=== PATIENT | female | born 1960 | race Caucasian/White ===

== ENCOUNTER 2021-05-31 07:11 | Outpatient (CLI) | payer BC, SELFPAY ==
--- NOTE | 2021-05-31 07:27 | US_ITS ---
WS: [id number] TRANSABDOMINAL AND TRANSVAGINAL PELVIC ULTRASOUND HISTORY: ? Fibroid, abnormal PELVIC EXAM COMPARISON: None available. Uterus: 6.3 x 2.0 x 4.0 cm. Uterus is small caliber and anteverted. There is a poorly defined soft ti ssue mass which is extending posterior and bulging from the posterior uterus. Mass contains calcifica tions and does abut the posterior surface of the endometrium. There is mild increased vascularity wit hin the mass. This mass measures 3.8 x 2.7 x 3.5 cm. Endometrium: Poorly visualized endometrium. Endometrium is distorted by the mass. The endometrium is mildly distended measuring approximately 7 mm. There are increased low level echoes within the endome trial canal. No increased vascularity. Right ovary: RIGHT ovary is not identified. No adnexal mass. Left ovary: 2.0 x 1.2 x 1.5 cm; no abnormality. No free fluid. US/US pelvic complete* [id number] IMPRESSION: 1. Heterogeneous mass with calcifications centered in the posterior myometrium causing bulging of the posterior contour. This mass measures 2.8 x 2.7 x 3.5 c m and is most likely a degenerating fibroid. 2. RIGHT ovary not visualized. 3. Mildly enlarged endometrium with low level echoes in the endometrial canal. No increased vascularity but neoplasm is not excluded. Recommend hysteroscopy for further evaluation.
== END 2021-05-31 07:12 | disposition home or self-care (01) ==
PROVIDERS: PCP Family Medicine; Visit Provider Nurse Practitioner Family
DX: Z01.411 Encounter for gynecological examination (general) (routine) with abnormal findings (principal); R19.09 Other intra-abdominal and pelvic swelling, mass and lump; N85.00 Endometrial hyperplasia, unspecified
CPT/HCPCS: 76856

== ENCOUNTER → 2021-06-05 09:00 | Outpatient (BNVA) | payer BC, SELFPAY | PROVIDERS: PCP Family Medicine; Referring Provider Nurse Practitioner Family; Visit Provider Obstetrics & Gynecology | DX: N89.8 Other specified noninflammatory disorders of vagina (principal) | CPT/HCPCS: 87070; 87077; 87184; 87205 ==

== ENCOUNTER 2021-06-13 09:16 | Day surgery (SDC) | payer BC, SELFPAY ==
[2021-06-12 12:41] VITALS: BMI 25.7
[2021-06-13] VITALS (9 sets, daily range): BP systolic 114–145; BP diastolic 74–100; PULSE 85–94; RESP 12–19; TEMP 36.3–37.1; O2SAT 99–100
[2021-06-13] MEDS: sodium chloride 0.9% 1,000 ML 30 ML IV (09:46)
[2021-06-13] MEDS: ketorolac 30 mg/mL INJ IVP (09:47)
--- NOTE | 2021-06-13 10:21 | ANES.PREANE2 ---
Pre-Anesthetic Assessment Height/Weight: Height 1.6 m Weight 65.771 kg Temp Pulse Resp BP Pulse Ox 98.8 F 88 18 145/92 99 06/13/21 09:32 06/13/21 09:32 06/13/21 09:32 06/13/21 09:32 06/13/21 09:32 Preop Diagnosis: uterine leiomyoma, thickened endometrium, pelvic pain Operation Date: 06/13/21 10:40 Proposed Procedures p Hysteroscopy w/ Myosure 20060/46999/D25.9/R10.2/D25.9/45371(Not Applicable) - Rahel Bryan MD s Dilation And Curettage (D&C)(Not Applicable) - Rahel Bryan MD Familial anesthetic complications: None Was Beta Gina taken within 24 hours: N/A Was Clonidine taken within 24 hours: N/A Last intake: Intake Last Liquid Date 06/12/21 Last Liquid Time 23:40 Last Solid Date 06/12/21 Last Solid Time 23:40 Social No alcohol and No tobacco Exam alert, oriented x 3, clear to auscultation bilaterally and regular rate & rhythm Airway Submandibular: within normal limits Cervical ROM: within normal limits Mallampati: Class II Dentition: full Metabolic Hyperlipidemia Anesthetic Plan ASA status: 2 Anesthesia: General Medications/Allergies Home Medications Medication Instructions Recorded Confirmed Last Taken Type atorvastatin 10 mg tablet (Lipitor) 10 mg PO DAILY 06/05/21 06/13/21 06/12/21 History doxycycline hyclate 100 mg tablet 100 mg PO BID #28 tab 06/05/21 06/13/21 06/12/21 Rx ciprofloxacin HCl 500 mg tablet 500 mg PO BID #20 tab 06/08/21 06/13/21 06/12/21 Rx (Cipro) Allergies Allergy/AdvReac Type Severity Reaction Status Date / Time Penicillins Allergy Severe swelling Verified 06/13/21 09:30 Sulfa (Sulfonamide Allergy Unknown Unknown Verified 06/13/21 09:30 Antibiotics) Current Medications Generic Name Dose Route Start Last Admin Trade Name Freq PRN Reason Stop Dose Admin Sodium Chloride 1,000 mls @ 30 mls/hr 06/13/21 09:30 06/13/21 09:46 Sodium Chloride 0.9% IV 06/14/21 09:29 30 mls/hr .Q24H COSTA Administration PFSH Anesthesia Medical History Factor 5 Leiden mutation, heterozygous History of broken collarbone X2 surgical repair Hypercholesteremia Surgical History History of carpal tunnel repair History of cholecystectomy History of tubal ligation Family History Daughter Bleeding disorder 2 copies of factor 5 Clotting disorder Thyroid disease Sister Uterine cancer Diabetes Hypertension Father Diabetes Hypertension Stroke Family/Other Breast cancer 6 paternal aunts Cancer paternal uncle- lung cancer maternal uncle- colon cancer Brother Cancer testicular Diabetes Mother Hypertension Stroke Denies family history of Hyperlipidemia Data Anesthesia Cardiac Studies: No Data to Display
--- NOTE | 2021-06-13 10:41 | W.PM.OPSUD ---
Surgery/Procedure H&P Update DATE OF PROCEDURE: June 13, 2021 DATE H&P PERFORMED: 06/08/21 H&P UPDATE INFORMATION: I have reviewed H&P completed within last 30 days, I have examined patient prior to procedure and No changes to prior documentation CHANGES TO PREVIOUS DOCUMENTATION: I have spoken with patient and she has had keflex in the past. PREOP DIAGNOSIS: uterine leiomyoma, thickened endometrium, pelvic pain PLANNED PROCEDURE: Operation Date: 06/13/21 10:40 Proposed Procedures p Hysteroscopy w/ Myosure 95873/19357/D25.9/R10.2/D25.9/03900(Not Applicable) - Rahel Bryan MD s Dilation And Curettage (D&C)(Not Applicable) - Rahel Bryan MD Related Problem List Diagnoses (1) Uterine leiomyoma: (2) Thickened endometrium:
[2021-06-13] MEDS: miSOPROStol 200 mcg Tablet 800 MCG VAGINAL (11:25)
--- NOTE | 2021-06-13 12:01 | PM.OP ---
Operative Report Date of procedure: June 13, 2021 Pre-op diagnosis: Preop Diagnosis uterine leiomyoma, thickened endometrium, pelvic pain Post-op diagnosis: other Post-op diagnosis: Cervical stenosis Post-op findings: stenotic cervical os Procedure done: cervical dilation and attempted hysteroscopy Specimens removed/disposition: none Surgeon: Rahel Bryan Anesthesia: General Estimated blood loss (mL): 0 IV fluids (mL): 900 Complications: none Findings: stenotic internal and external cervical os. Unable to advance into cervix Condition: stable Disposition: PACU Procedure: The patient was taken to the operating room where monitored anesthesia was administered and to be adequate. She was prepped and draped in the normal sterile fashion in the dorsal lithotomy position in [facility]. A weighted speculum was placed into the vagina and the anterior lip of the cervix grasped with a single-tooth tenaculum. The external cervical os was stenotic. 800 mcg was placed under the cervix. I used the lacrimal dilators to dilate the external os to 16 mm. The uterus was unable to be sounded due to a closed internal cervical os. I attempted dilation with the uterine sound and even hydrodilation with the hysteroscope. I could see the internal Os, but it would not open. It did appear as though there was a mass near the posterior of the internal os. Without being able to visualize it fully, I was unable to resect the mass. I tried several attempts to dilate the cervix, but it was solidly shut. I aborted the procedure. I will speak with the patient about the option of pre-treatment with cytotc prior to attempting hysteroscopy again or offer vaginal hysterectomy. All instruments were removed. The patient tolerated the procedure well. Sponge lap and needle counts were correct x3. She was taken to the recovery room in stable condition.
--- NOTE | 2021-06-13 12:10 | PM.DCS ---
Discharge Providers Date of Admission: 06/13/21 Date of Discharge: June 13, 2021 Attending Provider at Discharge: Rahel Bryan MD Primary Care Provider: Lula Lee MD Diagnoses at Discharge Discharge Diagnosis (1) Uterine leiomyoma: Status: Acute (2) Thickened endometrium: Status: Acute Reason for Visit Reason for Visit: pelvic pain, uterine fibroids, thickened endometri Hospital Course Hospital Course The patient was admitted for surgery. I was unable to get through her internal os. The procedure was aborted. We will discuss what to do next from here. She did well postoperatively and was ready for discharge. Discharge Data Vitals Last Vital Signs Temp 97.3 F L 06/13/21 12:02 Pulse 88 06/13/21 12:02 Resp 12 06/13/21 12:02 BP 135/87 06/13/21 12:02 Pulse Ox 100 06/13/21 12:02 Discharge Plan Discharge Patient Disposition: Home Condition: Stable Prescriptions: Continued atorvastatin [Lipitor] 10 mg tablet 10 mg PO DAILY 0RF doxycycline hyclate 100 mg tablet 100 mg PO BID Qty: 28 0RF ciprofloxacin HCl [Cipro] 500 mg tablet 500 mg PO BID Qty: 20 0RF Discharge Orders: Discharge Order (Routine); Ordered 06/13/21 Ordered By: Rahel Bryan Discharge Attestations Time Spent in Discharge Care*: less than 30 min Quality Metrics Clinical Quality Measures [ No reported AMI, CVA or VTE this stay] Coding Level of Care Code Acute Chg FW DC note Diagnoses Uterine leiomyoma D25.9 Thickened endometrium R93.89
--- NOTE | 2021-06-13 12:11 | SUR.PHASEI ---
1201 PT TO PACU SLEEPY WITH GOOD RESPIRATORY EFFORT, CHIN LIFT REQUIRED TO KEEP AIRWAY OPEN, VSS MONITOR SR NO ECTOPY, IV TO RT WRIST #18 WITH NS 100ML AT KVO RATE PER GRAVITY, PT ABDOMEN SOFT, ID BAND TO LT WRIST PT ID'D WITH 2 IDENTIFIERS, SCDS ON BILATERALLY.
--- NOTE | 2021-06-13 12:14 | SUR.PHASEI ---
PT AWAKE ALERT , ORIENTED X 3 ,PT VERBALLY DENIES PAIN AND NAUSEA, PT ON RA TRIAL.
--- NOTE | 2021-06-13 15:30 | ANE.PACU2 ---
Inpatient post-anesthesia follow up: Airway intact: Yes Vital signs: Temperature 97.4 F Pulse Rate 85 Respiratory Rate 16 Blood Pressure 118/74 Pulse Oximetry 100 Oxygen Delivery Me thod Room Air Oxygen Flow Rate 8 Fraction of Inspir ed Oxygen Hydration adequate: Yes Nausea and vomiting: No Pain level: 2 Mental status: Baseline
== END 2021-06-13 13:20 | disposition home or self-care (01) ==
PROVIDERS: PCP Family Medicine; Visit Provider Obstetrics & Gynecology
PROC: 0UDB8ZZ Extraction of Endometrium, Via Natural or Artificial Opening Endoscopic (ICD-10-PCS; CPT 58558; principal; 2021-06-13 10:30)
PROC: (CPT 58120; 2021-06-13 10:30)
DX: D25.9 Leiomyoma of uterus, unspecified (principal); R93.89 Abnormal findings on diagnostic imaging of other specified body structures; R10.2 Pelvic and perineal pain; Z83.3 Family history of diabetes mellitus; Z82.49 Family history of ischemic heart disease and other diseases of the circulatory system; Z80.3 Family history of malignant neoplasm of breast; Z80.49 Family history of malignant neoplasm of other genital organs
CPT/HCPCS: 58558; J0690; J1100; J1885; J2250; J2405; J2704; J3010; J7030

== ENCOUNTER 2021-07-12 15:17 | Outpatient (CLI) | payer BC, SELFPAY ==
--- NOTE | 2021-07-12 15:35 | MM_ITS ---
WS: [id number] BILATERAL 3D TOMOSYNTHESIS DIGITAL SCREENING MAMMOGRAPHY WITH CAD CLINICAL INFORMATION: SCREENING HISTORY: Screening mammogram. No current complaints. COMPARISON: June 28, 2016 TECHNIQUE: Bilateral CC and MLO views. FINDINGS: Scattered fibroglandular densities bilaterally. Punctate and lucent centered calcifications. Vascular calcification. No suspicious focal mass, asymmetry, calcifications, or architectural distortion. No evidence of malignancy. MM/[place] [id number] IMPRESSION: BI-RADS: 2-Benign FOLLOW UP: 1 Year Follow-up Recommend return to annual screening mammography.
== END 2021-07-12 15:18 | disposition home or self-care (01) ==
LOC: RAD 15:19
PROVIDERS: PCP Family Medicine; Visit Provider Nurse Practitioner Family
DX: Z12.31 Encounter for screening mammogram for malignant neoplasm of breast (principal)
CPT/HCPCS: 77063; 77067

== ENCOUNTER 2021-09-12 05:50 | Day surgery (SDC) | payer BC, SELFPAY ==
[2021-09-11 10:03] VITALS: BMI 24.7
[2021-09-12] VITALS (8 sets, daily range): BP systolic 101–143; BP diastolic 73–86; PULSE 71–87; RESP 16–18; TEMP 36.6–36.8; O2SAT 98–100
[2021-09-12] MEDS: ketorolac 30 mg/mL INJ IVP (06:18)
[2021-09-12] MEDS: sodium chloride 0.9% 1,000 ML 30 ML IV (06:23)
[2021-09-12] MEDS: doxycycline 100 MG in sodium chloride 0.9% (plus) 100 ML IV (07:00)
--- NOTE | 2021-09-12 07:09 | W.PM.OPSUD ---
Surgery/Procedure H&P Update DATE OF PROCEDURE: September 12, 2021 DATE H&P PERFORMED: 09/08/21 H&P UPDATE INFORMATION: I have reviewed H&P completed within last 30 days, I have examined patient prior to procedure and No changes to prior documentation PREOP DIAGNOSIS: thickened endometrium, pelvic pain, uterine leiomyoma, cervical stenosis PLANNED PROCEDURE: Operation Date: 09/12/21 07:00 Proposed Procedures p Hysteroscopy w/ Myosure dialation and curettage [id number]/47427/R93.89(Not Applicable) - Rahel Bryan MD s Dilation And Curettage (D&C)(Not Applicable) - Rahel Bryan MD Related Problem List Diagnoses (1) Cervical stenosis (uterine cervix): (2) Uterine leiomyoma: (3) Pelvic pain: (4) Thickened endometrium:
--- NOTE | 2021-09-12 07:49 | PM.OP ---
Operative Report Date of procedure: September 12, 2021 Pre-op diagnosis: Preop Diagnosis thickened endometrium, pelvic pain, uterine leiomyoma, cervical stenosis Post-op diagnosis: same Procedure done: hysteroscopy, dilation and curettage with myosure Specimens removed/disposition: endometrial polyp to pathology Surgeon: Rahel Bryan Anesthesia: MAC Estimated blood loss (mL): 0 IV fluids (mL): 750 Complications: none Findings: 8 week sized uterus, one large endometrial polyp arising from the right fallopian tube Condition: stable Disposition: PACU Procedure: The patient was taken to the operating room where monitored anesthesia was administered and to be adequate. She was prepped and draped in the normal sterile fashion in the dorsal lithotomy position in [facility]. A weighted speculum was placed into the vagina and the anterior lip of the cervix grasped with a single-tooth tenaculum. The uterus was sounded to 8 cm. The cervix was dilated to 16 [place]. The hysteroscope was advanced into the endometrial cavity. There was a large polyp arising from the right fallopian tube visualized. The MyoSure device was activated and the tissue was removed. Pictures were taken pre and post procedure. All instruments were removed. The patient tolerated the procedure well. Sponge lap and needle counts were correct x3. She was taken to the recovery room in stable condition.
--- NOTE | 2021-09-12 07:54 | ANES.PREANE2 ---
Pre-Anesthetic Assessment Height/Weight: Height 1.6 m Weight 63.503 kg Temp Pulse Resp BP Pulse Ox 97.8 F 71 16 101/73 100 09/12/21 07:50 09/12/21 07:50 09/12/21 07:50 09/12/21 07:50 09/12/21 07:50 Preop Diagnosis: thickened endometrium, pelvic pain, uterine leiomyoma, cervical stenosis Operation Date: 09/12/21 07:00 Proposed Procedures p Hysteroscopy w/ Myosure dialation and curettage [id number]/[id number]/31039/R93.89(Not Applicable) - Rahel Bryan MD s Dilation And Curettage (D&C)(Not Applicable) - Rahel Bryan MD Familial anesthetic complications: None Was Beta Gina taken within 24 hours: N/A Was Clonidine taken within 24 hours: N/A Last intake: Intake Last Liquid Date 09/11/21 Last Liquid Time 21:00 Last Solid Date 09/11/21 Last Solid Time 21:00 Social No alcohol and No tobacco Exam alert, oriented x 3, clear to auscultation bilaterally and regular rate & rhythm Airway Submandibular: within normal limits Cervical ROM: within normal limits Mallampati: Class II Dentition: full Metabolic Hyperlipidemia Anesthetic Plan ASA status: 2 Anesthesia: General Medications/Allergies Home Medications Medication Instructions Recorded Confirmed Last Taken Type atorvastatin 10 mg tablet (Lipitor) 10 mg PO DAILY 06/05/21 09/12/21 09/11/21 History misoprostol 200 mcg tablet 600 mcg PO Q6H #36 tab 09/08/21 09/12/21 09/12/21 Rx (Cytotec) Allergies Allergy/AdvReac Type Severity Reaction Status Date / Time Penicillins Allergy Severe swelling Verified 09/11/21 10:02 Sulfa (Sulfonamide Allergy Unknown Unknown Verified 09/11/21 10:02 Antibiotics) Current Medications Generic Name Dose Route Start Last Admin Trade Name Freq PRN Reason Stop Dose Admin Sodium Chloride 1,000 mls @ 30 mls/hr 09/12/21 06:15 09/12/21 06:23 Sodium Chloride 0.9% IV 09/13/21 06:14 30 mls/hr .Q24H COSTA Administration PFSH Anesthesia Medical History Factor 5 Leiden mutation, heterozygous History of broken collarbone X2 surgical repair Hypercholesteremia Surgical History History of carpal tunnel repair History of cholecystectomy History of tubal ligation Family History Daughter Bleeding disorder 2 copies of factor 5 Clotting disorder Thyroid disease Sister Uterine cancer Diabetes Hypertension Father Diabetes Hypertension Stroke Family/Other Breast cancer 6 paternal aunts Cancer paternal uncle- lung cancer maternal uncle- colon cancer Brother Cancer testicular Diabetes Mother Hypertension Stroke Denies family history of Hyperlipidemia Data Anesthesia Cardiac Studies: No Data to Display
--- NOTE | 2021-09-12 07:54 | PM.DCS ---
Discharge Providers Date of Admission: 09/12/21 Date of Discharge: September 12, 2021 Attending Provider at Discharge: Rahel Bryan MD Primary Care Provider: Lula Lee MD Diagnoses at Discharge Discharge Diagnosis (1) Cervical stenosis (uterine cervix): Status: Acute (2) Uterine leiomyoma: Status: Acute (3) Pelvic pain: Status: Acute (4) Thickened endometrium: Status: Acute Reason for Visit Reason for Visit: thickened endometrium R93.89/D25.9 Hospital Course Hospital Course The patient was admitted for surgery. She did well postoperatively and was ready for discharge Discharge Data Studies Completed and Pending Pending at discharge Category Date Time Status ES surgery / GI images Routine Exams 09/12/21 06:26 Taken Pathology: Surgical [PTH] Routine Pth 09/12/21 07:34 Ordered Vitals Last Vital Signs Temp 97.8 F 09/12/21 07:50 Pulse 71 09/12/21 07:50 Resp 16 09/12/21 07:50 BP 101/73 09/12/21 07:50 Pulse Ox 100 09/12/21 07:50 Discharge Plan Discharge Patient Disposition: Home Condition: Stable Prescriptions: Continued atorvastatin [Lipitor] 10 mg tablet 10 mg PO DAILY 0RF misoprostol [Cytotec] 200 mcg tablet 600 mcg PO Q6H Qty: 36 0RF Rx Instructions: start medication 12:00 noon on 09/09 and take every 6 hours. Last dose am 09/12 Discharge Orders: Discharge Order (Routine); Ordered 09/12/21 Ordered By: Rahel Bryan Discharge Attestations Time Spent in Discharge Care*: less than 30 min Quality Metrics Clinical Quality Measures [ No reported AMI, CVA or VTE this stay] Coding Level of Care Code Acute Chg FW DC note Diagnoses Cervical stenosis (uterine cervix) N88.2 Uterine leiomyoma D25.9 Pelvic pain R10.2 Thickened endometrium R93.89
--- NOTE | 2021-09-12 15:40 | ANE.PACU2 ---
Inpatient post-anesthesia follow up: Airway intact: Yes Vital signs: Temperature 98.1 F Pulse Rate 81 Respiratory Rate 18 Blood Pressure 138/82 Pulse Oximetry 100 Oxygen Delivery Me thod Room Air Oxygen Flow Rate 6 Fraction of Inspir ed Oxygen Hydration adequate: Yes Nausea and vomiting: No Pain level: 3 Mental status: Baseline
== END 2021-09-12 08:52 | disposition home or self-care (01) ==
PROVIDERS: PCP Family Medicine; Visit Provider Obstetrics & Gynecology
PROC: 0UDB8ZZ Extraction of Endometrium, Via Natural or Artificial Opening Endoscopic (ICD-10-PCS; CPT 58558; principal; 2021-09-12 07:00)
PROC: (CPT 58120; 2021-09-12 07:00)
DX: R93.89 Abnormal findings on diagnostic imaging of other specified body structures (principal); R10.2 Pelvic and perineal pain; D25.9 Leiomyoma of uterus, unspecified; N88.2 Stricture and stenosis of cervix uteri
CPT/HCPCS: 58558; 88305; J1885; J2001; J2250; J2704; J3010; J3490; J7030

== ENCOUNTER 2024-01-28 10:45 | Outpatient (CLI) | payer BC, SELFPAY ==
--- NOTE | 2024-01-28 10:46 | MM_ITS ---
WS: [id number] BILATERAL 3D TOMOSYNTHESIS DIGITAL SCREENING MAMMOGRAPHY WITH CAD CLINICAL INFORMATION: SCREENING HISTORY: Screening mammogram. No current complaints. COMPARISON: 2021 TECHNIQUE: Bilateral CC and MLO views. FINDINGS: The breasts are composed of heterogeneous fibroglandular density tissue, which can limit the detectio n of small underlying mass lesions. No suspicious mass, asymmetry, calcifications, or architectural d istortion. No evidence of malignancy. Vascular calcifications. Few incidental benign calcifications. MM/MM [facility] tomosynthesis [id number] IMPRESSION: DENSITY: The breasts are heterogeneously dense, which may obscure small masses. BI-RADS: 2 - Benign FOLLOW UP: 1 Year Follow-up Recommend return to annual screening mammography.
== END 2024-01-28 10:46 | disposition home or self-care (01) ==
LOC: RAD 10:46
PROVIDERS: PCP Family Medicine; Visit Provider Family Medicine
DX: Z12.31 Encounter for screening mammogram for malignant neoplasm of breast (principal); R92.333 Mammographic heterogeneous density, bilateral breasts; R92.1 Mammographic calcification found on diagnostic imaging of breast
CPT/HCPCS: 77063; 77067

== ENCOUNTER → 2024-11-18 07:57 | Outpatient (BNVA) | payer MEDICARE, SELFPAY | PROVIDERS: PCP Family Medicine; Visit Provider Surgery | DX: R19.7 Diarrhea, unspecified (principal) | CPT/HCPCS: 99203 ==

== ENCOUNTER 2024-12-03 06:37 | Day surgery (SDC) | payer MEDICARE, SELFPAY ==
[2024-12-03 06:58] VITALS: BP 126/91; PULSE 82; RESP 16; TEMP 36.3; O2SAT 100; BMI 23.9
--- NOTE | 2024-12-03 07:35 | ANES.PREANE2 ---
Pre-Anesthetic Assessment Height/Weight: Height 1.6 m Weight 61.235 kg Temp Pulse Resp BP Pulse Ox O2 Del Method 97.4 F L 82 16 126/91 100 Room Air 12/03/24 06:58 12/03/24 06:58 12/03/24 06:58 12/03/24 06:58 12/03/24 06:58 12/03/24 06:58 Operation Date: 12/03/24 07:55 Proposed Procedures p Colonoscopy [id number] G0105 Z12.11(Not Applicable) - Loki Nuno MD Familial anesthetic complications: none Was Beta Gina taken within 24 hours: N/A Was Clonidine taken within 24 hours: N/A Last intake: Intake Last Liquid Date 12/02/24 Last Liquid Time 20:00 Last Solid Date 12/01/24 Last Solid Time 19:00 Social No alcohol and No tobacco Exam alert and oriented x 3 Airway Submandibular: within normal limits Cervical ROM: within normal limits Mallampati: Class I Dentition: full History/ROS No significant complaints Anesthetic Plan ASA status: 1 Risk of > 500 ml blood loss (7ml/kg in children): No Medications/Allergies Home Medications ?Medication ?Instructions ?Recorded ?Confirmed ?Last Taken ?Type LOLITA 250 mg-5HTP 50 mg-mag 50 1 cap PO DAILY 11/18/24 11/30/24 12/02/24 07:00 History if-R6-rrvuhf 1,360 mcg DFE-B12 capsule ([employer]) ascorbic acid (vitamin C) 1,000 mg 1,000 mg PO DAILY 11/18/24 11/30/24 12/02/24 07:00 History capsule bergamot extract 500 mg capsule 1,500 mg PO DAILY 11/18/24 11/30/24 12/02/24 07:00 History ([place] Bergamot) magnesium 200 mg tablet 1,000 mg PO DAILY 11/18/24 11/30/24 12/02/24 07:00 History pk-1-tki-epa-fish oil-vit D3 500 1 cap PO BID 11/18/24 11/30/24 12/01/24 07:00 History mg (200mg-300mg)-1,000 mg capsule vitamin B comp and C no.3 15 mg-10 1 cap PO BID 11/18/24 11/30/24 12/02/24 07:00 History mg-50 mg-5 mg-300 mg capsule (B Complex Plus Vitamin C) Allergies Allergy/AdvReac Type Severity Reaction Status Date / Time Penicillins Allergy Severe swelling Verified 12/03/24 07:06 Sulfa (Sulfonamide Allergy Unknown Unknown Verified 12/03/24 07:06 Antibiotics) Current Medications Generic Name Dose Route Start Last Admin Trade Name Freq PRN Reason Stop Dose Admin Sodium Chloride 1,000 mls @ 15 mls/hr 12/03/24 06:45 12/03/24 07:05 Sodium Chloride 0.9% IV 12/04/24 06:44 15 mls/hr .Q24H PRN Administration COLONOSCOPY FLUIDS PFSH Anesthesia Medical History Hypercholesteremia History of broken collarbone X2 surgical repair Factor 5 Leiden mutation, heterozygous Surgical History History of cholecystectomy History of tubal ligation History of carpal tunnel repair Family History Daughter Bleeding disorder 2 copies of factor 5 Clotting disorder Thyroid disease Sister Uterine cancer Diabetes Hypertension Father Diabetes Hypertension Stroke Family/Other Breast cancer 6 paternal aunts Cancer paternal uncle- lung cancer maternal uncle- colon cancer Brother Cancer testicular Diabetes Mother Hypertension Stroke Denies family history of Hyperlipidemia Social History Smoking and tobacco/nicotine status: never used tobacco/nicotine
--- NOTE | 2024-12-03 07:44 | P.HPUD_ITS ---
Surgery/Procedure H&P Update DATE OF PROCEDURE: December 03, 2024 DATE H&P PERFORMED: 11/18/24 H&P UPDATE INFORMATION: I have reviewed H&P completed within last 30 days, I have examined patient prior to procedure, No changes to prior documentation, H&P is in [facility] EMR on date indicated and Risks and benefits of the procedure reviewed PLANNED PROCEDURE: Operation Date: 12/03/24 07:55 Proposed Procedures p Colonoscopy [id number] G0105 Z12.11(Not Applicable) - Loki Nuno MD
[2024-12-03 08:13] VITALS: BP 90/61; PULSE 71; RESP 18; TEMP 36.1; O2SAT 97
[2024-12-03 08:17] VITALS: BP 104/70; RESP 18; O2SAT 97
--- NOTE | 2024-12-03 08:35 | ANE.PACU2 ---
Inpatient post-anesthesia follow up: Airway intact: Yes Vital signs: Temperature 97.0 F Pulse Rate 71 Respiratory Rate 18 Blood Pressure 104/70 Pulse Oximetry 97 Oxygen Delivery Me thod Room Air Oxygen Flow Rate Fraction of Inspir ed Oxygen Hydration adequate: Yes Nausea and vomiting: No Pain level: 1 Mental status: Baseline
== END 2024-12-03 08:35 | disposition home or self-care (01) ==
PROVIDERS: PCP Family Medicine; Visit Provider Surgery
PROC: 0DJD8ZZ Inspection of Lower Intestinal Tract, Via Natural or Artificial Opening Endoscopic (ICD-10-PCS; CPT 45378; principal; 2024-12-03 07:55)
DX: R19.7 Diarrhea, unspecified (principal); K57.30 Diverticulosis of large intestine without perforation or abscess without bleeding; D12.8 Benign neoplasm of rectum
CPT/HCPCS: 45380; 88305; J2704; J7030

== ENCOUNTER → 2024-12-22 09:28 | Outpatient (BNVA) | payer MEDICARE, SELFPAY | PROVIDERS: PCP Family Medicine; Visit Provider Surgery | DX: Z09 Encounter for follow-up examination after completed treatment for conditions other than malignant neoplasm (principal) | CPT/HCPCS: 99213 ==